=== PATIENT | male | born 1975 | race Caucasian/White ===

== ENCOUNTER 2020-07-18 12:19 | Emergency (ER) | payer OTHER ==
[~2020-07-18] VITALS: Ht 177.8 cm; Wt 97.5 kg
[2020-07-18] MEDS ORDERED: OMNIPAQUE ORAL SOLN 500ml 12mg/ml PO ONE (12:48)
[2020-07-18] MEDS ORDERED: ONDANSETRON HCL 4 MG/2 ML VIAL IV ONE ×2 (13:30→15:00)
[2020-07-18] MEDS ORDERED: MORPHINE SULFATE INJECTION 2 MG/ML SYRG IV ONE ×2 (13:30→15:00)
[2020-07-18] MEDS ORDERED: IOHEXOL 300 MG/ML 100ML BOTTLE IJ ONE (13:32)
[2020-07-18 13:44] LABS: Basophils # (auto) 0.2 10 ^3/uL (0-0.2); Basophils % (auto) 1.1 % (0.0-2.0); Eosinophils # (auto) 0 10 ^3/uL (0-0.8); Lymphocytes # (auto) 0.5 10 ^3/uL (0.4-5.4); Lymphocytes % (auto) 3.5 % (10.0-50.0); Mean Corpuscular Hemoglobin 30.4 pg (28.0-32.0); Mean Corpuscular Hgb Conc. 34.8 g/dL (32.0-36.0); Mean Corpuscular Volume 87.3 fL (80.0-100.0); Monocytes # (auto) 0.4 10 ^3/uL (0-1.3); Monocytes % (auto) 2.8 % (0.0-12.0); Neutrophils # (auto) 12.9 10 ^3/uL (1.6-8.6); Neutrophils % (auto) 92.6 % (37.0-80.0); Nucleated Red Blood Cells % 0.1 %; Red Blood Cells 5.61 10^6/uL (4.5-5.90); White Blood Cell 13.9 10^3/uL (4.4-10.8)
[2020-07-18] MEDS ORDERED: PROMETHAZINE HCL 25 MG/ML 1ML ONE (14:14)
[2020-07-18] MEDS ORDERED: PROMETHAZINE HCL 25 MG/ML 1ML IV ONE (14:15)
[2020-07-18 14:28] LABS: BUN/Creatinine Ratio 12.6; Calcium 8.8 mg/dL (8.5-10.1); Potassium 4.8 mmol/L (3.5-5.1)
[2020-07-18 14:30] LABS: Bilirubin, Total 0.9 mg/dL (0.2-1.0); Total Protein 7.1 g/dL (6.4-8.2)
[2020-07-18] MEDS ORDERED: LIDOCAINE VISCOUS 2% 15ML UD MT ONE (15:15)
[2020-07-18] MEDS ORDERED: metroNIDAZOLE 500MG/100ML 100 ML IV ONE (15:15)
[2020-07-18] MEDS ORDERED: LIDOCAINE VISCOUS 2% 15ML UD ONE (15:15)
[2020-07-18] MEDS ORDERED: cefTRIAXone 1GM/50ML D5W 50 ML IV ONE (15:15)
[2020-07-18 15:31] VITALS: BP 128/91
== END 2020-07-18 15:41 | disposition designated cancer center or children's hospital (05) ==
LOC: ER 12:19
DX: S39.91XA Unspecified injury of abdomen, initial encounter (principal); S36.899A Unspecified injury of other intra-abdominal organs, initial encounter; S36.409A Unspecified injury of unspecified part of small intestine, initial encounter; F17.210 Nicotine dependence, cigarettes, uncomplicated; V86.56XA Driver of dirt bike or motor/cross bike injured in nontraffic accident, initial encounter; Y93.89 Activity, other specified; Y92.89 Other specified places as the place of occurrence of the external cause; Y99.8 Other external cause status
CPT/HCPCS: 36415; 70450; 71260; 72125; 74177; 80053; 85025; 96365; 96368; 96375; 96376; 99285; J0696; J2270; J2405; J2550; J3490; Q9967